=== PATIENT | male | born 1945 | race Caucasian/White ===

== ENCOUNTER 2017-04-05 17:10 | Inpatient (IN) | payer MEDICARE ==
[~2017-04-05] VITALS: Ht 177.8 cm; Wt 89.4 kg
[2017-04-05] VITALS (8 sets, daily range): BP systolic 114–185; BP diastolic 68–91; PULSE 52–92; RESP 16–29; TEMP 98–99.3; O2SAT 96–100
[2017-04-05 18:41] LABS: AUTOMATED NEUTROPHIL # 7.2 TH/MM3 (1.8-7.7); BASOPHIL # 0.1 TH/MM3 (0-0.2); BASOPHIL % 0.6 % (0.0-2.0); EOSINOPHIL % 0.2 % (0.0-4.0); HEMATOCRIT 36.5 % (39.0-51.0); LYMPH % 16.4 % (9.0-44.0); LYMPHOCYTE # 1.5 TH/MM3 (1.0-4.8); MEAN CELL VOLUME 93.7 FL (80.0-100.0); MEAN CORPUSCULAR HEMOGLOBIN 31.1 PG (27.0-34.0); MEAN CORPUSCULAR HGB CONC 33.2 % (32.0-36.0); MONO % 5.3 % (0.0-8.0); NEUT % 77.5 % (16.0-70.0); PLATELET COUNT 279 TH/MM3 (150-450); RED BLOOD COUNT 3.89 MIL/MM3 (4.50-5.90); RED CELL DISTRIBUTION WIDTH 16.8 % (11.6-17.2); WHITE BLOOD COUNT 9.2 TH/MM3 (4.0-11.0)
[2017-04-05 18:42] LABS: HEMO FLAGS AUTO DIFF
[2017-04-05] MEDS ORDERED: SODIUM CHLOR 0.9% 250 ML INJ 250 ML IV ONE (18:45)
--- NOTE | 2017-04-05 18:47 | PD ---
HPI Chief Complaint: GI Complaint Time Seen by Provider: 18:02 Travel History International Travel<30 days: No Contact w/Intl Traveler<30days: No Traveled to known affect area: No History of Present Illness HPI 71 year old male patient arrives to the emergency department via EMS for evaluation of GI bleeding. Patient was diagnosed with ulcerative colitis last spring. Patient states he has been passing small amounts of blood since then. Patient states today around 5 PM he had a bowel movement and noticed more significant bleeding. Patient then was transported to our facility for further evaluation. Upon arrival the patient was found to be bleeding rectally, but in no acute distress and hemodynamically stable. After approximately 30-40 mins it was noted that the bleeding was significantly increased. Patient is not currently on any blood thinners. He is denying abdominal pain, nausea or vomiting. PFSH Past Medical History Cancer: Yes (PROSTATE) Cardiovascular Problems: Yes (MVP) High Cholesterol: Yes Gastrointestinal Disorders: Yes (ULCERATIVE COLITIS) Medical other: Yes (PROSTATE CA) Tetanus Vaccination: Unknown Past Surgical History Other Surgery: Yes (INFRARED COAGULATION) Social History Alcohol Use: No Tobacco Use: No Substance Use: No Allergies-Medications (Allergen,Severity, Reaction): Coded Allergies: Penicillins (Verified Allergy, Unknown, 04/05/17) ciprofloxacin (Verified Allergy, Unknown, 04/05/17) Reported Meds & Prescriptions Reported Meds & Active Scripts Active Reported Align (Lactobacillus Rhamnosus (GG)) 4 Mg (1 Billion Cell) Cap 4 Mg PO DAILY Prednisone 20 Mg Tab 20 Mg PO BID Hydrocortisone (Intrarectal) Enema 100 Mg/60 Ml Enem 100 Mg RECTAL HS [place]asa Supp (Mesalamine) 1,000 Mg Supp 1,000 Mg RECTAL HS Mercaptopurine 50 Mg Tab 50 Mg PO DAILY Folic Acid 1 Mg Tablet Asacol HD (Mesalamine) 800 Mg Tab 800 Mg PO BID Swallow whole. Take on an empty stomach. Timolol Opth Drops 0.5 % Soln 1 Drop EACH EYE BID Prilosec (Omeprazole Magnesium) 20 Mg Tab Vitamin D-3 (Cholecalciferol) 2,000 Unit Tab Citalopram (Citalopram Hydrobromide) 20 Mg Tab 20 Mg PO DAILY Simvastatin 40 Mg Tab 40 Mg PO HS Verapamil ER 24 HR (Verapamil HCl) 240 Mg Tab 240 Mg PO HS Diazepam 10 Mg Tab 10 Mg PO BID PRN Review of Systems Except as stated in HPI: all other systems reviewed are Neg Physical Exam Narrative GENERAL: Well-nourished well-developed 71-year-old male in no acute distress. He is hemodynamically stable at this time. Significant rectal bleeding noted. SKIN: Focused skin assessment warm/dry. HEAD: Atraumatic. Normocephalic. EYES: Pupils equal and round. No scleral icterus. No injection or drainage. ENT: No nasal bleeding or discharge. Mucous membranes pink and moist. NECK: Trachea midline. No JVD. CARDIOVASCULAR: Regular rate and rhythm. No murmur appreciated. RESPIRATORY: No accessory muscle use. Clear to auscultation. Breath sounds equal bilaterally. GASTROINTESTINAL: Abdomen soft, non-tender, nondistended. Hepatic and splenic margins not palpable. Significant bright red rectal bleeding with multiple clots noted. MUSCULOSKELETAL: No obvious deformities. No clubbing. No cyanosis. No edema. NEUROLOGICAL: Awake and alert. No obvious cranial nerve deficits. Motor grossly within normal limits. Normal speech. PSYCHIATRIC: Appropriate mood and affect; insight and judgment normal. Data Data Last Documented VS Vital Signs Date Time Temp Pulse Resp B/P (MAP) Pulse Ox O2 Delivery O2 Flow Rate FiO2 04/05/17 20:08 92 20 148/78 (101) 99 Room Air 04/05/17 17:45 98.4 Orders Orders Complete Blood Count With Diff (04/05/17 18:03) Comprehensive Metabolic Panel (04/05/17 18:03) Lipase (04/05/17 18:03) Prothrombin Time / Inr (Pt) (04/05/17 18:03) Act Partial Throm Time (Ptt) (04/05/17 18:03) Urinalysis - C+S If Indicated (04/05/17 18:03) Ecg Monitoring (04/05/17 18:03) Iv Access Insert/Monitor (04/05/17 18:03) Oximetry (04/05/17 18:03) Ct Abd/Pel W Iv Contrast(Rout) (04/05/17 18:09) Type And Screen (04/05/17 18:43) Red Blood Cells (Rbc) (04/05/17 18:43) Blood Product Administration (04/05/17 18:43) Sodium Chlor 0.9% 250 Ml Inj (Ns 250 Ml (04/05/17 18:45) Sodium Chlor 0.9% 1000 Ml Inj (Ns 1000 M (04/05/17 19:30) Iohexol 350 Inj (Omnipaque 350 Inj) (04/05/17 19:39) Cbc No Diff, Includes Plts (04/05/17 20:15) Cbc No Diff, Includes Plts (04/06/17 02:15) Cbc No Diff, Includes Plts (04/06/17 08:15) Cbc No Diff, Includes Plts (04/06/17 14:15) Cbc No Diff, Includes Plts (04/06/17 20:15) Cbc No Diff, Includes Plts (04/07/17 02:15) Cbc No Diff, Includes Plts (04/07/17 08:15) Cbc No Diff, Includes Plts (04/07/17 14:15) Cbc No Diff, Includes Plts (04/07/17 20:15) Ondansetron Inj (Zofran Inj) (04/05/17 20:15) Methylprednisolone So Succ Inj (Solumedr (04/05/17 22:00) Diet Npo (04/06/17 Breakfast) Mesalamine Enema (Rowasa Enema) (04/05/17 21:00) D5-Ns + Kcl 20 Meq Inj (D5-Ns + Kcl 20 M (04/05/17 20:15) Famotidine Inj (Pepcid Inj) (04/05/17 20:15) Admit Order (Ed Use Only) (04/05/17 20:52) Labs Laboratory Tests Test 04/05/17 18:15 04/05/17 20:00 04/05/17 20:51 White Blood Count 9.2 TH/MM3 12.2 TH/MM3 Red Blood Count 3.89 MIL/MM3 3.24 MIL/MM3 Hemoglobin 12.1 GM/DL 9.8 GM/DL Hematocrit 36.5 % 30.6 % Mean Corpuscular Volume 93.7 FL 94.3 FL Mean Corpuscular Hemoglobin 31.1 PG 30.3 PG Mean Corpuscular Hemoglobin Concent 33.2 % 32.1 % Red Cell Distribution Width 16.8 % 16.4 % Platelet Count 279 TH/MM3 264 TH/MM3 Mean Platelet Volume 8.1 FL 7.3 FL Neutrophils (%) (Auto) 77.5 % Lymphocytes (%) (Auto) 16.4 % Monocytes (%) (Auto) 5.3 % Eosinophils (%) (Auto) 0.2 % Basophils (%) (Auto) 0.6 % Neutrophils # (Auto) 7.2 TH/MM3 Lymphocytes # (Auto) 1.5 TH/MM3 Monocytes # (Auto) 0.5 TH/MM3 Eosinophils # (Auto) 0.0 TH/MM3 Basophils # (Auto) 0.1 TH/MM3 CBC Comment AUTO DIFF Differential Total Cells Counted 100 Neutrophils % (Manual) 70 % Band Neutrophils % 4 % Lymphocytes % 15 % Monocytes % 7 % Neutrophils # (Manual) 7.2 TH/MM3 Metamyelocytes 2 % Myelocytes 1 % Promyelocytes 1 % Differential Comment FINAL DIFF MANUAL Toxic Granulation 1+ Platelet Estimate NORMAL Platelet Morphology Comment NORMAL Ovalocytes 1+ Prothrombin Time 10.2 SEC Prothromb Time International Ratio 1.0 RATIO Activated Partial Thromboplast Time 18.8 SEC Blood Urea Nitrogen 17 MG/DL Creatinine 0.83 MG/DL Random Glucose 100 MG/DL Total Protein 5.9 GM/DL Albumin 2.5 GM/DL Calcium Level 8.2 MG/DL Alkaline Phosphatase 73 U/L Aspartate Amino Transf (AST/SGOT) 26 U/L Alanine Aminotransferase (ALT/SGPT) 43 U/L Total Bilirubin 0.4 MG/DL Sodium Level 142 MEQ/L Potassium Level 4.2 MEQ/L Chloride Level 106 MEQ/L Carbon Dioxide Level 26.8 MEQ/L Anion Gap 9 MEQ/L Estimat Glomerular Filtration Rate 91 ML/MIN Lipase 69 U/L Urine Color LIGHT-YELLOW Urine Turbidity CLEAR Urine pH 7.0 Urine Specific [place] 1.008 Urine Protein NEG mg/dL Urine Glucose (UA) NEG mg/dL Urine Ketones NEG mg/dL Urine Occult Blood MOD Urine Nitrite NEG Urine Bilirubin NEG Urine Urobilinogen LESS THAN 2.0 MG/DL Urine Leukocyte Esterase NEG Urine RBC 1 /hpf Urine WBC 1 /hpf Microscopic Urinalysis Comment CULT NOT INDICATED MDM Medical Decision Making Medical Screen Exam Complete: Yes Emergency Medical Condition: Yes Differential Diagnosis Differential diagnoses include but not limited to bowel perforation, hemorrhage , GI bleed, ulcerative colitis exacerbation, bleeding hemorrhoids Narrative Course Patient placed on monitor, IV obtained, CBC, CMP, PT, INR, lipase, UA ordered and pending upon initial exam. Patient is hemodynamically stable and in no acute distress. Vital signs stable. Within 30-40 minutes when patient started bleeding significantly more Dr. Moreno assessed the patient and ordered type and screen and 2 PRBCs to be given now. Abdominal CT shows: Diverticular disease without evidence of diverticulitis. Mild mural forgetting in the rectal sigmoid of unknown etiology. Left renal cyst and small hiatal hernia. The patient was continuing to bleed bright red blood profusely from the rectum. The patient was still denying abdominal pain, nausea or vomiting. The patient was given a liter bolus of normal saline. The patient's blood pressure started to trend downward and his heart rate increased. First unit of packed red blood cells was started in the ED. Patient was admitted to intensive care. Dr. Bautista accepted admission. Dr. Ott colorectal surgeon consulted. Patient is admitted at this time. Diagnosis Primary Impression: Anorectal hemorrhage Admitting Information Admitting Physician Requests: Admit Jenni Aguila Apr 05, 2017 18:47
[2017-04-05 18:48] LABS: PROTHROMBIN TIME - PATIENT 10.2 SEC (9.8-11.6)
[2017-04-05 18:50] LABS: APTT (PATIENT) 18.8 SEC (24.3-30.1)
[2017-04-05 19:04] LABS: ALKALINE PHOSPHATASE 73 U/L (45-117); ALT (GPT) 43 U/L (12-78); TOTAL BILIRUBIN ADULT 0.4 MG/DL (0.2-1.0)
[2017-04-05 19:07] LABS: ANION GAP 9 MEQ/L (5-15); AST (GOT) 26 U/L (15-37); BICARBONATE 26.8 MEQ/L (21.0-32.0); BLOOD UREA NITROGEN 17 MG/DL (7-18); CHLORIDE 106 MEQ/L (98-107); GLOMERULAR FILTRATION RATE 91 ML/MIN (>89); SODIUM (NA) 142 MEQ/L (136-145)
[2017-04-05 19:08] LABS: POTASSIUM 4.2 MEQ/L (3.5-5.1)
[2017-04-05] MEDS ORDERED: VERA1TAB17 PO (19:08)
[2017-04-05] MEDS ORDERED: MERC50TA PO (19:08)
[2017-04-05] MEDS ORDERED: CHOL1TAB42 (19:08)
[2017-04-05] MEDS ORDERED: HYDR100E2 RECTAL (19:08)
[2017-04-05] MEDS ORDERED: ASAC800T PO (19:08)
[2017-04-05] MEDS ORDERED: PRIL20TA2 (19:08)
[2017-04-05] MEDS ORDERED: CANA10002 RECTAL (19:08)
[2017-04-05] MEDS ORDERED: CITA20TA4 PO (19:08)
[2017-04-05] MEDS ORDERED: PRED20 PO (19:08)
[2017-04-05] MEDS ORDERED: ALIG4CAP PO (19:08)
[2017-04-05] MEDS ORDERED: FOLI1TAB6 (19:08)
[2017-04-05] MEDS ORDERED: DIAZ10TA PO (19:08)
[2017-04-05] MEDS ORDERED: SIMV40TA PO (19:08)
[2017-04-05] MEDS ORDERED: TIMO0.5S30 EACH EYE (19:08)
--- NOTE | 2017-04-05 19:13 | PD ---
Data Data Last Documented VS Vital Signs Date Time Temp Pulse Resp B/P (MAP) Pulse Ox O2 Delivery O2 Flow Rate FiO2 04/05/17 20:08 92 20 148/78 (101) 99 Room Air 04/05/17 17:45 98.4 Orders Orders Complete Blood Count With Diff (04/05/17 18:03) Comprehensive Metabolic Panel (04/05/17 18:03) Lipase (04/05/17 18:03) Prothrombin Time / Inr (Pt) (04/05/17 18:03) Act Partial Throm Time (Ptt) (04/05/17 18:03) Urinalysis - C+S If Indicated (04/05/17 18:03) Ecg Monitoring (04/05/17 18:03) Iv Access Insert/Monitor (04/05/17 18:03) Oximetry (04/05/17 18:03) Ct Abd/Pel W Iv Contrast(Rout) (04/05/17 18:09) Type And Screen (04/05/17 18:43) Red Blood Cells (Rbc) (04/05/17 18:43) Blood Product Administration (04/05/17 18:43) Sodium Chlor 0.9% 250 Ml Inj (Ns 250 Ml (04/05/17 18:45) Sodium Chlor 0.9% 1000 Ml Inj (Ns 1000 M (04/05/17 19:30) Iohexol 350 Inj (Omnipaque 350 Inj) (04/05/17 19:39) Cbc No Diff, Includes Plts (04/05/17 20:15) Cbc No Diff, Includes Plts (04/06/17 02:15) Cbc No Diff, Includes Plts (04/06/17 08:15) Cbc No Diff, Includes Plts (04/06/17 14:15) Cbc No Diff, Includes Plts (04/06/17 20:15) Cbc No Diff, Includes Plts (04/07/17 02:15) Cbc No Diff, Includes Plts (04/07/17 08:15) Cbc No Diff, Includes Plts (04/07/17 14:15) Cbc No Diff, Includes Plts (04/07/17 20:15) Ondansetron Inj (Zofran Inj) (04/05/17 20:15) Methylprednisolone So Succ Inj (Solumedr (04/05/17 22:00) Diet Npo (04/06/17 Breakfast) Mesalamine Enema (Rowasa Enema) (04/05/17 21:00) D5-Ns + Kcl 20 Meq Inj (D5-Ns + Kcl 20 M (04/05/17 20:15) Famotidine Inj (Pepcid Inj) (04/05/17 20:15) Admit Order (Ed Use Only) (04/05/17 20:52) Labs Laboratory Tests Test 04/05/17 18:15 04/05/17 20:00 04/05/17 20:51 White Blood Count 9.2 TH/MM3 12.2 TH/MM3 Red Blood Count 3.89 MIL/MM3 3.24 MIL/MM3 Hemoglobin 12.1 GM/DL 9.8 GM/DL Hematocrit 36.5 % 30.6 % Mean Corpuscular Volume 93.7 FL 94.3 FL Mean Corpuscular Hemoglobin 31.1 PG 30.3 PG Mean Corpuscular Hemoglobin Concent 33.2 % 32.1 % Red Cell Distribution Width 16.8 % 16.4 % Platelet Count 279 TH/MM3 264 TH/MM3 Mean Platelet Volume 8.1 FL 7.3 FL Neutrophils (%) (Auto) 77.5 % Lymphocytes (%) (Auto) 16.4 % Monocytes (%) (Auto) 5.3 % Eosinophils (%) (Auto) 0.2 % Basophils (%) (Auto) 0.6 % Neutrophils # (Auto) 7.2 TH/MM3 Lymphocytes # (Auto) 1.5 TH/MM3 Monocytes # (Auto) 0.5 TH/MM3 Eosinophils # (Auto) 0.0 TH/MM3 Basophils # (Auto) 0.1 TH/MM3 CBC Comment AUTO DIFF Differential Total Cells Counted 100 Neutrophils % (Manual) 70 % Band Neutrophils % 4 % Lymphocytes % 15 % Monocytes % 7 % Neutrophils # (Manual) 7.2 TH/MM3 Metamyelocytes 2 % Myelocytes 1 % Promyelocytes 1 % Differential Comment FINAL DIFF MANUAL Toxic Granulation 1+ Platelet Estimate NORMAL Platelet Morphology Comment NORMAL Ovalocytes 1+ Prothrombin Time 10.2 SEC Prothromb Time International Ratio 1.0 RATIO Activated Partial Thromboplast Time 18.8 SEC Blood Urea Nitrogen 17 MG/DL Creatinine 0.83 MG/DL Random Glucose 100 MG/DL Total Protein 5.9 GM/DL Albumin 2.5 GM/DL Calcium Level 8.2 MG/DL Alkaline Phosphatase 73 U/L Aspartate Amino Transf (AST/SGOT) 26 U/L Alanine Aminotransferase (ALT/SGPT) 43 U/L Total Bilirubin 0.4 MG/DL Sodium Level 142 MEQ/L Potassium Level 4.2 MEQ/L Chloride Level 106 MEQ/L Carbon Dioxide Level 26.8 MEQ/L Anion Gap 9 MEQ/L Estimat Glomerular Filtration Rate 91 ML/MIN Lipase 69 U/L Urine Color LIGHT-YELLOW Urine Turbidity CLEAR Urine pH 7.0 Urine Specific [place] 1.008 Urine Protein NEG mg/dL Urine Glucose (UA) NEG mg/dL Urine Ketones NEG mg/dL Urine Occult Blood MOD Urine Nitrite NEG Urine Bilirubin NEG Urine Urobilinogen LESS THAN 2.0 MG/DL Urine Leukocyte Esterase NEG Urine RBC 1 /hpf Urine WBC 1 /hpf Microscopic Urinalysis Comment CULT NOT INDICATED MDM Supervised Visit with HERMAN: Yes Narrative Course I, Dr. Moreno, have reviewed the advance practice practitioner's documentation and am in agreement, met with the patient face to face, made the diagnosis, and the medical decision making was done by me. *My assessment and Findings: Patient is a 71-year-old male with history of ulcer colitis has been followed by Dr. Arredondo in the past for this emergency department with bright red blood from rectum for the past 2 hours. Initially on evaluation by Jenni Ortiz the patient appeared comfortable and had no active passing of blood. I was approached by the patient's stating that he was bleeding heavily, I went to examine the patient and his pants were soaked in blood, the patient was placed in the prone position and examined thoroughly I do not see any external or internal hemorrhoids, the patient is passing bright red blood from the rectum actively but it is nonpulsatile. He also passed 3 baseball-sized blood clots. He appears hemodynamically stable his GCS of 15, hemoglobin of 12, I ordered 2 units PRBCs to be transfused now in for an reserve. The patient was discussed with Dr. Baxter by Jenni Ortiz, he recommends large bore access admission to the hospital and cannot be having colonoscopy given the amount of blood in his rectum at this time. The patient was discussed with Dr. Lynn Matias by me @ 1900, she is in route to see the patient. She agrees the patient should receive blood and have 4 units an reserve. CAT scan is ordered, the patient will be admitted to the ICU. Diagnosis Primary Impression: Anorectal hemorrhage Admitting Information Admitting Physician Requests: Admit Condition: Critical Brian Moreno MD Apr 05, 2017 19:13
[2017-04-05] MEDS ORDERED: SODIUM CHLOR 0.9% 1000 ML INJ 1,000 ML IV ONE (19:30)
[2017-04-05 19:38] LABS: BANDS 4 % (0-6); METAMYELOCYTES 2 % (0-1); MYELOCYTES 1 % (0-0); NEUTROPHIL # MANUAL DIFF 7.2 TH/MM3 (1.8-7.7); OVALOCYTES 1+ (NORMAL); PLATELET ESTIMATE SMEAR NORMAL (NORMAL); PLATELET MORPHOLOGY NORMAL (NORMAL); POLYS (SEG NEUTROPHILS) 70 % (16-70); PROMYELOCYTES 1 % (0-0); SCAN/DIFF FINAL DIFF MANUAL; TOXIC GRANULATION 1+ (NORMAL); WBC DIFF SAMPLE 100
[2017-04-05] MEDS ORDERED: IOHEXOL 350 MG/ML 10 ML VIAL (for RAD DIAG) IVCONTRAST ONE (19:39)
--- NOTE | 2017-04-05 19:48 | RADRPT ---
EXAM DATE/TIME: 04/05/2017 19:20 [facility] COMPARISON: No previous studies available for comparison. INDICATIONS : Severe rectal bleeding. IV CONTRAST: 100 Omnipaque 350 (iohexol) IV ORAL CONTRAST: No oral contrast ingested. RADIATION DOSE: 10.64 CTDIvol (mGy) MEDICAL HISTORY : Ulcerative colitis. Cardiovascular disease Carcinoma, prostate. SURGICAL HISTORY : None. ENCOUNTER: Initial ACUITY: 1 day PAIN SCALE: 8/10 LOCATION: rectal TECHNIQUE: Volumetric scanning of the abdomen and pelvis was performed. Using automated exposure control and ad justment of the mA and/or kV according to patient size, radiation dose was kept as low as reasonably achievable to obtain optimal diagnostic quality images. DICOM format image data is available electro nically for review and comparison. FINDINGS: Lung bases are clear except for linear scarring. No acute findings in the liver, spleen, adrenals or pancreas. No calcified gallstones. There is a 7.1 cm left renal cyst. No free fluid. No bowel obstruction. No adenopathy. No acute findings within the pelvis. Small hiatal hernia. There is colonic diverticular disease without evidence for diverticulitis. CONCLUSION: 1. Colonic diverticular disease without evidence for diverticulitis. Mild mural thickening in the rec tosigmoid of unknown etiology. 2. 7 cm left renal cyst. 3. Small hiatal hernia. Anthony Ribeiro MD on April 05, 2017 at 19:41 Board Certified Radiologist. This report was verified electronically.
[2017-04-05] MEDS ORDERED: ONDANSETRON HCL 4 MG/2 ML VIAL IV PUSH PRN ×2 (20:15→21:00)
[2017-04-05] MEDS ORDERED: FAMOTIDINE 20 MG/2 ML VIAL IV PUSH SCH (20:15)
[2017-04-05] MEDS: D5-NS + KCL 20 MEQ INJ 1,000 ML IV SCH ×2 (20:15→22:58)
[2017-04-05 20:28] LABS: BLOOD, URINE MOD (NEG); COMMENT (UR) CULT NOT INDICATED; CULTURE IF INDICATED CULT NOT INDICATED; GLUCOSE,URINE NEG (NEG); KETONE, URINE NEG (NEG); NITRITE,URINE NEG (NEG); URINE COLOR LIGHT-YELLOW (YELLW/STRAW)
[2017-04-05] MEDS ORDERED: ACETAMINOPHEN 325 MG TAB PO PRN (21:00)
[2017-04-05] MEDS ORDERED: MISCELLANEOUS NURSING INFORMATION XX SCH (21:00)
[2017-04-05] MEDS ORDERED: SODIUM CHLORIDE 0.9% FLUSH 10 ML FLUSH IV FLUSH PRN (21:00)
[2017-04-05] MEDS ORDERED: CHLORHEXIDINE GLUCONATE 2 % 1 PACK (2 CLOTHS) TOP PRN (21:00)
[2017-04-05 21:03] LABS: HEMATOCRIT 30.6 % (39.0-51.0); MEAN CELL VOLUME 94.3 FL (80.0-100.0); MEAN CORPUSCULAR HEMOGLOBIN 30.3 PG (27.0-34.0); MEAN CORPUSCULAR HGB CONC 32.1 % (32.0-36.0); PLATELET COUNT 264 TH/MM3 (150-450); RED BLOOD COUNT 3.24 MIL/MM3 (4.50-5.90); RED CELL DISTRIBUTION WIDTH 16.4 % (11.6-17.2); REVIEW FLAG FINAL; WHITE BLOOD COUNT 12.2 TH/MM3 (4.0-11.0)
--- NOTE | 2017-04-05 21:36 | MB ---
cc: DES PICKETT MD DATE OF CONSULTATION 04/05/17 CHIEF COMPLAINT Rectal bleeding. HISTORY OF PRESENT ILLNESS The patient is a 71-year-old male who came into the emergency room with copious rectal bleeding. He was diagnosed with ulcerative colitis in June of this year and, according to the patient, he was told that this was mostly distal disease. He has been treated with steroids, 5-ASA products, and 6MP, and is scheduled to start Remicaide infusion on Saturday. He has had mostly small to moderate amounts of blood with his colitis, as well as mucus but not a lot of diarrhea. Then beginning about 5 o'clock tonight, he began having more significant bleeding ,with passage of clots and both bright and dark blood. His normal bowel pattern is daily, perhaps slightly more stool once or twice a week. He has been following a soft diet since his diagnosis of ulcerative colitis. PAST MEDICAL HISTORY 1. Mitral valve prolapse 2. History of prostate cancer PAST SURGICAL HISTORY None ALLERGIES PENICILLIN CIPROFLOXACIN SOCIAL HISTORY The patient denies tobacco, alcohol or recreational drugs. MEDICATIONS 1. Mercaptopurine 2. Simvastatin 3. Verapamil 4. Citalopram 5. Diazepam 6. Atenolol. 7. Omeprazole 8. Mesalamine. 9. Lactobacillus 10. Hydrocortisone enemas. 11. Prednisone 12. Folic acid 13. Vitamin D PHYSICAL EXAMINATION GENERAL: An alert male who appears comfortable. VITAL SIGNS: A pulse of 92 up from 55 earlier, respiratory rate is 20, blood pressure is 148/78 and pulse oximetry is 99% on room air. NEUROLOGIC: Grossly intact. SKIN: Warm and dry. HEENT: Head is normocephalic, atraumatic. CARDIOVASCULAR: Regular rate. LUNGS: Breathing symmetric bilaterally and nonlabored. ABDOMEN: Soft, nondistended, nontender. There are no palpable masses. EXTREMITIES: No edema. RECTAL: External anal exam reveals a large amount of old blood around the anal opening as well as some old clots and some stool. Digital rectal examination reveals poor tone. He does have some hemorrhoidal tissue. The distal rectum is palpably inflamed. The rectum was irrigated with warm normal saline with really only a small amount of blood expressed. LABORATORY DATA A white count 9.2, hemoglobin of 12.1, hematocrit 36.5, platelets of 279. Chemistry is essentially normal. Coags - PT of 10.2, INR is 1.0 and APTT of 18.8. Urinalysis is negative. IMAGING STUDIES CT scan showed diverticulosis without diverticulitis but does show some very mild thickening of the rectosigmoid wall as well as an incidental 7-cm left renal cyst and a small hiatal hernia. IMPRESSION Rectal bleeding most likely from ulcerative proctocolitis. I have irrigated out the clots to see if we can decrease his risk of continued bleeding and I will start him on Rowasa enemas, as well as some IV steroids. I will go ahead and flex him tomorrow morning. Hopefully, we can get him through this acute phase, as if I do have to operate emergently it will mean a proctectomy with end colostomy, which would be permanent. Thank you very much for your kind referral. I will defer management of the colitis to the Dr. Arredondo who is his regular provider. MD TYRONE Redman/ /8:39 PM /9:22 PM MTDD
[2017-04-05] MEDS: SODIUM CHLOR 0.9% 1000 ML INJ 1,000 ML IV SCH (22:00)
--- NOTE | 2017-04-05 22:33 | HHI.HP ---
[facility] Service Critical Care Medicine Primary Care Physician Unknown Admission Diagnosis GI bleed Diagnosis: (1) Hypovolemic shock Diagnosis: Principal (2) Lower GI bleed Diagnosis: Principal (3) Ulcerative colitis Diagnosis: Secondary Chief Complaint: Rectal bleeding. Travel History International Travel<30 Days: No Contact w/Intl Traveler <30 Da: No Traveled to Known Affected Are: No History of Present Illness 71 y/o man with Hx of ulcerative colitis started passing large clots of blood per rectum about 1700 today. Came to ED, at one point following period of normotension he developed SBP 70 mm Hg. Rapid transfusion was begun and we brought him up to the [facility]. Dr. Matias examined the patient in ED and has made recommendations. Past Family Social History Allergies: Coded Allergies: Penicillins (Verified Allergy, Unknown, 04/05/17) ciprofloxacin (Verified Allergy, Unknown, 04/05/17) Physical Exam Vital Signs Vital Signs Date Time Temp Pulse Resp B/P (MAP) Pulse Ox O2 Delivery O2 Flow Rate FiO2 04/05/17 21:29 98.5 75 16 133/78 (96) 96 04/05/17 21:08 98.5 70 16 114/68 96 04/05/17 20:08 92 20 148/78 (101) 99 Room Air 04/05/17 19:02 55 17 185/90 (121) 100 Room Air 04/05/17 17:45 98.4 55 18 185/90 (121) 100 Room Air 04/05/17 17:45 18 04/05/17 17:36 98.0 52 18 185/90 (121) 98 Physical Exam Gen: Feels cold. Head: Normal. Lungs: Clear, no adventitious sounds. Heart: RRR, NL S1S2, No JVD. Abdomen: Soft, no guarding. BS active. Extremities: Tepid, adequately perfused. Neuro: Alert, O X 3. M/S grossly intact. Laboratory Laboratory Tests Test 04/05/17 18:15 04/05/17 20:00 04/05/17 20:51 White Blood Count 9.2 12.2 Red Blood Count 3.89 3.24 Hemoglobin 12.1 9.8 Hematocrit 36.5 30.6 Mean Corpuscular Volume 93.7 94.3 Mean Corpuscular Hemoglobin 31.1 30.3 Mean Corpuscular Hemoglobin Concent 33.2 32.1 Red Cell Distribution Width 16.8 16.4 Platelet Count 279 264 Mean Platelet Volume 8.1 7.3 Neutrophils (%) (Auto) 77.5 Lymphocytes (%) (Auto) 16.4 Monocytes (%) (Auto) 5.3 Eosinophils (%) (Auto) 0.2 Basophils (%) (Auto) 0.6 Neutrophils # (Auto) 7.2 Lymphocytes # (Auto) 1.5 Monocytes # (Auto) 0.5 Eosinophils # (Auto) 0.0 Basophils # (Auto) 0.1 CBC Comment AUTO DIFF Differential Total Cells Counted 100 Neutrophils % (Manual) 70 Band Neutrophils % 4 Lymphocytes % 15 Monocytes % 7 Neutrophils # (Manual) 7.2 Metamyelocytes 2 Myelocytes 1 Promyelocytes 1 Differential Comment FINAL DIFF MANUAL Toxic Granulation 1+ Platelet Estimate NORMAL Platelet Morphology Comment NORMAL Ovalocytes 1+ Prothrombin Time 10.2 Prothromb Time International Ratio 1.0 Activated Partial Thromboplast Time 18.8 Blood Urea Nitrogen 17 Creatinine 0.83 Random Glucose 100 Total Protein 5.9 Albumin 2.5 Calcium Level 8.2 Alkaline Phosphatase 73 Aspartate Amino Transf (AST/SGOT) 26 Alanine Aminotransferase (ALT/SGPT) 43 Total Bilirubin 0.4 Sodium Level 142 Potassium Level 4.2 Chloride Level 106 Carbon Dioxide Level 26.8 Anion Gap 9 Estimat Glomerular Filtration Rate 91 Lipase 69 Urine Color LIGHT-YELLOW Urine Turbidity CLEAR Urine pH 7.0 Urine Specific [place] 1.008 Urine Protein NEG Urine Glucose (UA) NEG Urine Ketones NEG Urine Occult Blood MOD Urine Nitrite NEG Urine Bilirubin NEG Urine Urobilinogen LESS THAN 2.0 Urine Leukocyte Esterase NEG Urine RBC 1 Urine WBC 1 Microscopic Urinalysis Comment CULT NOT INDICATED Result Diagram: 04/05/17205004/05/171814 Caprini VTE Risk Assessment Caprini VTE Risk Assessment: No/Low Risk (score <= 1) Caprini Risk Assessment Model Point Value = 1 Point Value = 2 Point Value = 3 Point Value = 5 Age 41-60 Minor surgery BMI > 25 kg/m2 Swollen legs Varicose veins or History of unexplained or recurrent spontaneous Oral contraceptives or hormone replacement Sepsis (< 1 month) Serious lung disease, including pneumonia (< 1 month) Abnormal pulmonary function Acute myocardial infarction Congestive heart failure (< 1 month) History of inflammatory bowel disease Medical patient at bed rest Age 61-74 Arthroscopic surgery Major open surgery (> 45 min) Laparoscopic surgery (> 45 min) Malignancy Confined to bed (> 72 hours) Immobilizing plaster cast Central venous access Age >= 75 History of VTE Family history of VTE Factor V Leiden Prothrombin [id number] Lupus anticoagulant Anticardiolipin antibodies Elevated serum homocysteine Heparin-induced thrombocytopenia Other congenital or acquired thrombophilia Stroke (< 1 month) Elective arthroplasty Hip, pelvis, or leg fracture Acute spinal cord injury (< 1 month) Prophylaxis Regimen Total Risk Factor Score Risk Level Prophylaxis Regimen 0-1 Low Early ambulation 2 Moderate Order ONE of the following: *Sequential Compression Device (SCD) *Heparin 5000 units SQ BID 3-4 Higher Order ONE of the following medications: *Heparin 5000 units SQ TID *Enoxaparin/Lovenox 40 mg SQ daily (WT < 150 kg, CrCl > 30 mL/min) *Enoxaparin/Lovenox 30 mg SQ daily (WT < 150 kg, CrCl > 10-29 mL/min) *Enoxaparin/Lovenox 30 mg SQ BID (WT < 150 kg, CrCl > 30 mL/min) AND/OR *Sequential Compression Device (SCD) 5 or more Highest Order ONE of the following medications: *Heparin 5000 units SQ TID (Preferred with Epidurals) *Enoxaparin/Lovenox 40 mg SQ daily (WT < 150 kg, CrCl > 30 mL/min) *Enoxaparin/Lovenox 30 mg SQ daily (WT < 150 kg, CrCl > 10-29 mL/min) *Enoxaparin/Lovenox 30 mg SQ BID (WT < 150 kg, CrCl > 30 mL/min) AND *Sequential Compression Device (SCD) Assessment and Plan Assessment and Plan Assessment: 1. Lower GI bleed. 2. Hypotension. 3. Ulcerative colitis. Plan: 1. Serial Hgb. 2. NPO except meds, prep. 3. Maintenance IV. 4. IV steroid coverage (On prednisone) 5. CRS Service is following, plan flex sig in a.m. Overall impression: Acute LGI hemorrhage with period of hypotension. Critically ill and receiving rapid transfusion. Critical care 40 mins Justen Bautista MD Apr 05, 2017 22:33
[2017-04-05] MEDS: methylPREDNISolone SOD SUCC 40 MG/1 ML VIAL IV PUSH SCH (22:59)
[2017-04-05] MEDS: FAMOTIDINE 20 MG/2 ML VIAL IV PUSH SCH (22:59)
[2017-04-05] MEDS: SODIUM CHLORIDE 0.9% FLUSH 10 ML FLUSH IV FLUSH SCH (22:59)
[2017-04-05] MEDS: MESALAMINE ENEMA 4 GM/60 ML BTL RECTAL SCH (23:00)
[2017-04-06] VITALS (11 sets, daily range): BP systolic 107–140; BP diastolic 66–85; PULSE 59–90; RESP 15–18; TEMP 97.6–99.1; O2SAT 96–98
[2017-04-06 03:43] LABS: HEMATOCRIT 35.1 % (39.0-51.0); MEAN CELL VOLUME 90.4 FL (80.0-100.0); MEAN CORPUSCULAR HEMOGLOBIN 30.5 PG (27.0-34.0); MEAN CORPUSCULAR HGB CONC 33.7 % (32.0-36.0); PLATELET COUNT 208 TH/MM3 (150-450); RED BLOOD COUNT 3.89 MIL/MM3 (4.50-5.90); RED CELL DISTRIBUTION WIDTH 16.7 % (11.6-17.2); REVIEW FLAG FINAL
[2017-04-06] MEDS: CHLORHEXIDINE GLUCONATE 2 % 1 PACK (2 CLOTHS) TOP SCH (04:00)
[2017-04-06 04:02] LABS: BICARBONATE 26.5 MEQ/L (21.0-32.0); MAGNESIUM 1.6 MG/DL (1.5-2.5); POTASSIUM 4.1 MEQ/L (3.5-5.1)
[2017-04-06] MEDS: methylPREDNISolone SOD SUCC 40 MG/1 ML VIAL IV PUSH SCH ×3 (05:35→22:19)
[2017-04-06] MEDS: D5-NS + KCL 20 MEQ INJ 1,000 ML IV SCH ×2 (06:15→14:26)
[2017-04-06] MEDS: SODIUM CHLOR 0.9% 1000 ML INJ 1,000 ML IV SCH (06:54)
[2017-04-06] MEDS: FAMOTIDINE 20 MG/2 ML VIAL IV PUSH SCH ×2 (09:00→22:19)
[2017-04-06] MEDS: SODIUM CHLORIDE 0.9% FLUSH 10 ML FLUSH IV FLUSH SCH ×2 (09:00→22:23)
--- NOTE | 2017-04-06 09:04 | PD.CONS ---
HPI History of Present Illness This is a 71 year old M who is well known to our service. He presented to the emergency department yesterday with complaints of passing blood clots in his stool. Associated abdominal cramping with BMs. Reports multiple episodes yesterday, however has not had any over night. Pt had known hemorrhoids that he was receiving IRC treatment for, however, he states the bleeding became more profuse in June so he had a colonoscopy to evaluate. At that time pt was diagnosed with ulcerative colitis, confirmed by biopsy, he has tried multiple medications and has been refractory to treatment. Current treatment regimen includes Prednisone, Asacol, and Canasa suppository. Pt was supposed to receive his first injection of Remicade yesterday, however, he ended up in the hospital. CT abdomen/pelvis W IV contrast done in the ER --> Colonic diverticular disease without evidence for diverticulitis. Mild mural thickening in the rectosigmoid of unknown etiology. Pt is S/P 2 Units PRBCs, current H/H is 11.8/35.1. Pt was significantly hypotensive last night and was transferred to ICU for closer monitoring, he is now normotensive. Denies ETOH use and smoking. Denies family history of colon cancer, UC, and Crohns disease, Pt has never had EGD done before. PFSH Past Medical History Ulcerative colitis Mitral valve prolapse History of prostate cancer Hyperlipidemia HTN Coded Allergies: Penicillins (Verified Allergy, Unknown, 04/05/17) ciprofloxacin (Verified Allergy, Unknown, 04/05/17) Family History Unknown Social History Denies ETOH Denies smoking Denies illicit drug use Review of Systems Constitutional: COMPLAINS OF: Fatigue Gastrointestinal: COMPLAINS OF: Abdominal pain, Bloody stools, Diarrhea, DENIES : Black stools, Constipation, Nausea, Vomiting, Difficulty Swallowing, Heartburn , Hematemesis GI Exam Vitals I&O Vital Signs Date Time Temp Pulse Resp B/P (MAP) Pulse Ox O2 Delivery O2 Flow Rate FiO2 04/06/17 07:58 98 21 04/06/17 06:00 68 04/06/17 04:00 64 04/06/17 04:00 99.0 64 16 129/78 (95) 97 04/06/17 02:00 66 04/06/17 00:00 76 04/06/17 00:00 99.1 76 15 107/66 (80) 96 04/05/17 23:00 68 04/05/17 22:00 99.3 81 29 135/83 (100) 100 04/05/17 22:00 99.3 81 29 128/91 100 04/05/17 21:29 98.5 75 16 133/78 (96) 96 04/05/17 21:08 98.5 70 16 114/68 96 04/05/17 20:08 92 20 148/78 (101) 99 Room Air 04/05/17 19:02 55 17 185/90 (121) 100 Room Air 04/05/17 17:45 98.4 55 18 185/90 (121) 100 Room Air 04/05/17 17:45 18 04/05/17 17:36 98.0 52 18 185/90 (121) 98 I/O 04/05/17 04/05/17 04/05/17 04/06/17 04/06/17 04/06/17 07:00 15:00 23:00 07:00 15:00 23:00 Intake Total 1680 ml 650 ml Output Total 725 ml Balance 1680 ml -75 ml Intake IV Total 1000 ml Packed Cells 400 ml 400 ml Blood Product IV Normal Saline Flush 280 ml 250 ml Output Urine Total 725 ml # Voids 2 # Bowel Movements 1 Imaging Last Impressions Abdomen/Pelvis CT 04/05/171808 Signed Impressions: Service Date/Time: Wednesday, April 05, 2017 19:20 - CONCLUSION: 1. Colonic diverticular disease without evidence for diverticulitis. Mild mural thickening in the rectosigmoid of unknown etiology. 2. 7 cm left renal cyst. 3. Small hiatal hernia. Anthony Ribeiro MD Laboratory Test 04/05/17 18:15 04/05/17 20:00 04/05/17 20:51 04/05/17 22:30 White Blood Count 9.2 TH/MM3 12.2 TH/MM3 Red Blood Count 3.89 MIL/MM3 3.24 MIL/MM3 Hemoglobin 12.1 GM/DL 9.8 GM/DL Hematocrit 36.5 % 30.6 % Mean Corpuscular Volume 93.7 FL 94.3 FL Mean Corpuscular Hemoglobin 31.1 PG 30.3 PG Mean Corpuscular Hemoglobin Concent 33.2 % 32.1 % Red Cell Distribution Width 16.8 % 16.4 % Platelet Count 279 TH/MM3 264 TH/MM3 Mean Platelet Volume 8.1 FL 7.3 FL Neutrophils (%) (Auto) 77.5 % Lymphocytes (%) (Auto) 16.4 % Monocytes (%) (Auto) 5.3 % Eosinophils (%) (Auto) 0.2 % Basophils (%) (Auto) 0.6 % Neutrophils # (Auto) 7.2 TH/MM3 Lymphocytes # (Auto) 1.5 TH/MM3 Monocytes # (Auto) 0.5 TH/MM3 Eosinophils # (Auto) 0.0 TH/MM3 Basophils # (Auto) 0.1 TH/MM3 CBC Comment AUTO DIFF Differential Total Cells Counted 100 Neutrophils % (Manual) 70 % Band Neutrophils % 4 % Lymphocytes % 15 % Monocytes % 7 % Neutrophils # (Manual) 7.2 TH/MM3 Metamyelocytes 2 % Myelocytes 1 % Promyelocytes 1 % Differential Comment FINAL DIFF MANUAL Toxic Granulation 1+ Platelet Estimate NORMAL Platelet Morphology Comment NORMAL Ovalocytes 1+ Prothrombin Time 10.2 SEC Prothromb Time International Ratio 1.0 RATIO Activated Partial Thromboplast Time 18.8 SEC Blood Urea Nitrogen 17 MG/DL Creatinine 0.83 MG/DL Random Glucose 100 MG/DL Total Protein 5.9 GM/DL Albumin 2.5 GM/DL Calcium Level 8.2 MG/DL Alkaline Phosphatase 73 U/L Aspartate Amino Transf (AST/SGOT) 26 U/L Alanine Aminotransferase (ALT/SGPT) 43 U/L Total Bilirubin 0.4 MG/DL Sodium Level 142 MEQ/L Potassium Level 4.2 MEQ/L Chloride Level 106 MEQ/L Carbon Dioxide Level 26.8 MEQ/L Anion Gap 9 MEQ/L Estimat Glomerular Filtration Rate 91 ML/MIN Lipase 69 U/L Urine Color LIGHT-YELLOW Urine Turbidity CLEAR Urine pH 7.0 Urine Specific [place] 1.008 Urine Protein NEG mg/dL Urine Glucose (UA) NEG mg/dL Urine Ketones NEG mg/dL Urine Occult Blood MOD Urine Nitrite NEG Urine Bilirubin NEG Urine Urobilinogen LESS THAN 2.0 MG/DL Urine Leukocyte Esterase NEG Urine RBC 1 /hpf Urine WBC 1 /hpf Microscopic Urinalysis Comment CULT NOT INDICATED Nasal Screen MRSA (PCR) MRSA NOT DETECTED Test 04/06/17 03:28 White Blood Count 11.0 TH/MM3 Red Blood Count 3.89 MIL/MM3 Hemoglobin 11.8 GM/DL Hematocrit 35.1 % Mean Corpuscular Volume 90.4 FL Mean Corpuscular Hemoglobin 30.5 PG Mean Corpuscular Hemoglobin Concent 33.7 % Red Cell Distribution Width 16.7 % Platelet Count 208 TH/MM3 Mean Platelet Volume 7.5 FL Blood Urea Nitrogen 17 MG/DL Creatinine 0.76 MG/DL Random Glucose 131 MG/DL Calcium Level 7.5 MG/DL Magnesium Level 1.6 MG/DL Sodium Level 143 MEQ/L Potassium Level 4.1 MEQ/L Chloride Level 111 MEQ/L Carbon Dioxide Level 26.5 MEQ/L Anion Gap 6 MEQ/L Estimat Glomerular Filtration Rate 101 ML/MIN Lactic Acid Level 2.1 mmol/L Physical Examination HEENT: Normocephalic; atraumatic CHEST: Even/unlabored CARDIAC: RRR ABDOMEN: Soft, nontender; no hepatosplenomegaly; bowel sounds active x 4. EXTREMITIES: No clubbing, cyanosis, or edema. SKIN: Normal; no rash; no jaundice. COSMETIC SALES ADVISOR: No focal deficits; alert and oriented times three. Assessment and Plan Plan Assessment: Rectal bleeding- Started around 1700 yesterday afternoon- denies any episodes throughout the night. H/H on arrival to ED was 12.1/36.5 dropped to 9.8/30.6. Pt is now S/P 2 U PRBC , current H/H is 11.8/35.1. CT abdomen and pelvis W IV contrast (04/05) --> Colonic diverticular disease without evidence for diverticulitis. Mild mural thickening in the rectosigmoid of unknown etiology. Pt has known UC, diagnosed in June of this year, not well controlled with medication. Current medication regimen includes Canasa supp., Prednisone, and Asacol. Pt was supposed to start Remicade treatments yesterday, however, he ended up in the hospital. Reports abdominal cramping with BMs. Last PO intake was yesterday afternoon. Pt was evaluated by CRS who irrigated out the clots and plans to do flexsig this morning. Plan - Keep NPO - Continue Solumedrol - Continue Mesalamine rectal - Flexsigmoidoscopy to be done today by CRS - C Diff pending - Will await report from Dr. Matias flex sig - Plan for colonoscopy when appropriate - Monitor H/H - Transfuse as needed - Notify GI of active bleeding - Supportive care - Further recommendations to follow based on results of above Pt has been seen and examined by myself and Dr. Hathaway and this note is written on his behalf Yeimi Truong Apr 06, 2017 09:03
--- NOTE | 2017-04-06 10:31 | EKG ---
Date Performed: 04/06/2017 Time Performed: 10:00:51 PTAGE: 71 years EKG: Sinus rhythm NORMAL ECG NO PREVIOUS TRACING DOCTOR: Hany Willingham Interpretating Date/Time 04/06/2017 10:29:47
--- NOTE | 2017-04-06 11:27 | GIPROC ---
[facility] [address] [facility]. [facility] [place], [address] FLEXIBLE SIGMOIDOSCOPY PROCEDURE REPORT EXAM DATE: 04/06/2017 PATIENT NAME: Mike Bullock MR #: [id number] BIRTHDATE: 1945 ORDER #: [id number] ATTENDING: Lynn Matias MD CHRISTIAN COUNSELOR: Missy Pantoja and Paulo Garcia STATUS: inpatient INDICATIONS: The patient is a 71 yr old male here for a flexible sigmoidoscopy due to rectal bleeding, chronic ulcerative colitis PROCEDURE PERFORMED: Flexible sigmoidoscopy to descending colon MEDICATIONS: None and Per Anesthesia. ESTIMATED BLOOD LOSS: None CONSENT: The patient understands the risks and benefits of the procedure and understands that these risks include, but are not limited to: sedation, allergic reaction, infection, perforation and/or bleeding. Alternative means of evaluation and treatment include, among others: physical exam, x-rays, and/or surgical intervention. The patient elects to proceed with this endoscopic procedure. medical equipment was checked for proper function. Hand hygiene and appropriate measures for infection prevention was taken. After the risks, benefits and alternatives of the procedure were thoroughly explained, Informed consent was verified, confirmed and timeout was successfully executed by the treatment team. A digital rectal exam revealed palpable inflammation. The Pentax [id number] endoscope was introduced through the anus and advanced to the descending colon. The prep was good . The instrument was then slowly withdrawn as the colon was fully examined. The patient was noted to have severe inflammation from the distal rectum to the proximal sigmoid, with pseudopolyps. There was minimal active bleeding. The descending colon appeared normal but did have some clots. The scope was then completely withdrawn from the patient and the procedure terminated. ADVERSE EVENTS: There were no complications. IMPRESSIONS: Severe ulcerative proctocolitis RECOMMENDATIONS: If bleeding controlled, continue with plans for Remicaide Saturday RECALL: Per Gastroenterology Lynn Matias MD eSigned: Lynn Matias MD 04/06/2017 11:26 AM cc: Dr. Arredondo
[2017-04-06] MEDS ORDERED: DO NOT ADM ANY ANTICOAGULANT DRUGS PRN (12:00)
--- NOTE | 2017-04-06 12:37 | HHI.CCPN ---
Subjective Remarks/Hospital Course 71 y/o man with Hx of ulcerative colitis started passing large clots of blood per rectum about 1700 today. Came to ED, at one point following period of normotension he developed SBP 70 mm Hg. Rapid transfusion was begun and we brought him up to the [facility]. Dr. Matias examined the patient in ED and has made recommendations. 04/06: No active bleeding per patient. Received 2 units of PRBC. Hemoglobin 11.8 at 3 AM and repeat pending. Sigmoidoscopy showed severe ulcerative proctocolitis, but with only minimal active bleeding. Apparently planning on getting Remicade started Saturday Objective Vital Signs Date Time Temp Pulse Resp B/P (MAP) Pulse Ox O2 Delivery O2 Flow Rate FiO2 04/06/17 11:55 85 16 98 Room Air 04/06/17 11:50 98.2 112/62 (79) 04/06/17 11:40 2 04/06/17 07:58 21 Intake and Output 04/06/17 04/06/17 04/07/17 08:00 16:00 00:00 Intake Total 650 ml 300 ml Output Total 725 ml Balance -75 ml 300 ml Result Diagram: 04/06/17 0328 04/06/17 0328 Objective Remarks Gen: 71-year-old male in no acute distress Head: Normal. Lungs: Clear, no adventitious sounds. Heart: RRR, NL S1S2, No JVD. Abdomen: Soft, no guarding. BS active. Extremities: Tepid, adequately perfused. Neuro: Alert, O X 3. M/S grossly intact. A/P Assessment and Plan Assessment: 1. Lower GI bleed. 2. Hypotension. 3. Ulcerative colitis exacerbation Plan: 1. Serial Hgb. 2. NPO except meds, prep. Diet per GI 3. Maintenance IV. 4. IV steroid coverage (On prednisone) 5. Flexible sigmoidoscopy showed severe ulcerative proctocolitis 6. D/W Dr. Hathaway. august DC home tomorrow if stable and patient plan to start Remicade from Saturday Overall impression: Acute LGI hemorrhage with period of hypotension, now resolved and also bleeding resolved Level 2 Transfer to Med Surg with Tele. Hospitalist to assume care in Godfrey Mckeon MD Apr 06, 2017 12:37
[2017-04-06 16:50] LABS: HEMATOCRIT 34.5 % (39.0-51.0); MEAN CELL VOLUME 90.9 FL (80.0-100.0); MEAN CORPUSCULAR HGB CONC 34.1 % (32.0-36.0); PLATELET COUNT 210 TH/MM3 (150-450); RED CELL DISTRIBUTION WIDTH 17.4 % (11.6-17.2); REVIEW FLAG FINAL; WHITE BLOOD COUNT 12.1 TH/MM3 (4.0-11.0)
[2017-04-06] MEDS: MESALAMINE ENEMA 4 GM/60 ML BTL RECTAL SCH (21:00)
[2017-04-07 01:48] LABS: HEMATOCRIT 30.8 % (39.0-51.0); MEAN CELL VOLUME 89.9 FL (80.0-100.0); MEAN CORPUSCULAR HEMOGLOBIN 30.2 PG (27.0-34.0); MEAN CORPUSCULAR HGB CONC 33.6 % (32.0-36.0); PLATELET COUNT 181 TH/MM3 (150-450); RED BLOOD COUNT 3.42 MIL/MM3 (4.50-5.90); RED CELL DISTRIBUTION WIDTH 16.8 % (11.6-17.2); REVIEW FLAG FINAL; WHITE BLOOD COUNT 9.8 TH/MM3 (4.0-11.0)
[2017-04-07] MEDS: CHLORHEXIDINE GLUCONATE 2 % 1 PACK (2 CLOTHS) TOP SCH (04:00)
[2017-04-07 04:09] VITALS: BP 107/80; PULSE 85; RESP 17; TEMP 96.7; O2SAT 97
[2017-04-07] MEDS: methylPREDNISolone SOD SUCC 40 MG/1 ML VIAL IV PUSH SCH (06:41)
--- NOTE | 2017-04-07 07:34 | HHI.PR ---
Subjective Remarks Severe Ulcerative Proctocolitis with bleeding No significant bleeding overnight Objective Vital Signs Date Time Temp Pulse Resp B/P (MAP) Pulse Ox O2 Delivery O2 Flow Rate FiO2 04/07/17 05:20 21 04/07/17 04:09 96.7 85 17 107/80 (89) 97 04/06/17 23:36 97.6 75 18 140/77 (98) 96 04/06/17 19:42 97.8 71 17 138/80 (99) 96 04/06/17 16:00 97.9 90 18 134/85 (101) 96 04/06/17 12:00 98.6 84 18 136/80 (98) 96 04/06/17 11:55 85 16 98 Room Air 04/06/17 11:50 98.2 84 16 112/62 (79) 97 Room Air 04/06/17 11:40 83 15 106/57 (73) 100 Nasal Cannula 2 04/06/17 11:30 98.0 84 14 110/65 (80) 98 Nasal Cannula 2 04/06/17 10:00 63 16 146/89 (108) 98 04/06/17 09:30 98.2 68 18 153/88 (109) 96 04/06/17 09:00 Room Air 04/06/17 08:00 98.7 04/06/17 07:58 98 21 I/O 04/06/17 04/06/17 04/06/17 04/07/17 04/07/17 04/07/17 06:59 14:59 22:59 06:59 14:59 22:59 Intake Total 650 ml 300 ml 480 ml 783 ml Output Total 725 ml 400 ml Balance -75 ml -100 ml 480 ml 783 ml Intake Oral 480 ml 240 ml IV Total 543 ml Packed Cells 400 ml Blood Product IV Normal Saline Flush 250 ml Other 300 ml Output Urine Total 725 ml 400 ml # Voids 2 0 2 3 # Bowel Movements 1 0 0 Result Diagram: 04/07/17 0119 04/06/17 0328 Objective Remarks Abdomen benign Assessment and Plan Assessment and Plan No further significant bleeding Hgb slightly down, but probably equivocal OK for d/c today for outpatient Remicaide injection tomorrow Lynn Matias MD Apr 07, 2017 07:34
[2017-04-07 08:00] VITALS: BP 147/91; PULSE 57; RESP 18; TEMP 96.1; O2SAT 98
--- NOTE | 2017-04-07 09:09 | HHI.PR ---
Subjective Remarks Pt overall feeling better today He has had a soft BM this morning with small amount of bright red blood noted, much improved since admission. He denies any further abd cramping He is tolerating soft foods. Pt is very anxious to go home as he has his Remicade infusion scheduled for tomorrow morning at 0830 Objective Vitals Vital Signs Date Time Temp Pulse Resp B/P (MAP) Pulse Ox O2 Delivery O2 Flow Rate FiO2 04/07/17 05:20 21 04/07/17 04:09 96.7 85 17 107/80 (89) 97 04/06/17 23:36 97.6 75 18 140/77 (98) 96 04/06/17 19:42 97.8 71 17 138/80 (99) 96 04/06/17 16:00 97.9 90 18 134/85 (101) 96 04/06/17 12:00 98.6 84 18 136/80 (98) 96 04/06/17 11:55 85 16 98 Room Air 04/06/17 11:50 98.2 84 16 112/62 (79) 97 Room Air 04/06/17 11:40 83 15 106/57 (73) 100 Nasal Cannula 2 04/06/17 11:30 98.0 84 14 110/65 (80) 98 Nasal Cannula 2 04/06/17 10:00 63 16 146/89 (108) 98 04/06/17 09:30 98.2 68 18 153/88 (109) 96 04/06/17 09:00 Room Air Result Diagram: 04/07/17 0119 04/06/17 0328 Other Results Laboratory Tests Test 04/05/17 18:15 04/05/17 20:00 04/05/17 20:51 04/05/17 22:30 White Blood Count 9.2 TH/MM3 12.2 TH/MM3 Red Blood Count 3.89 MIL/MM3 3.24 MIL/MM3 Hemoglobin 12.1 GM/DL 9.8 GM/DL Hematocrit 36.5 % 30.6 % Mean Corpuscular Volume 93.7 FL 94.3 FL Mean Corpuscular Hemoglobin 31.1 PG 30.3 PG Mean Corpuscular Hemoglobin Concent 33.2 % 32.1 % Red Cell Distribution Width 16.8 % 16.4 % Platelet Count 279 TH/MM3 264 TH/MM3 Mean Platelet Volume 8.1 FL 7.3 FL Neutrophils (%) (Auto) 77.5 % Lymphocytes (%) (Auto) 16.4 % Monocytes (%) (Auto) 5.3 % Eosinophils (%) (Auto) 0.2 % Basophils (%) (Auto) 0.6 % Neutrophils # (Auto) 7.2 TH/MM3 Lymphocytes # (Auto) 1.5 TH/MM3 Monocytes # (Auto) 0.5 TH/MM3 Eosinophils # (Auto) 0.0 TH/MM3 Basophils # (Auto) 0.1 TH/MM3 CBC Comment AUTO DIFF Differential Total Cells Counted 100 Neutrophils % (Manual) 70 % Band Neutrophils % 4 % Lymphocytes % 15 % Monocytes % 7 % Neutrophils # (Manual) 7.2 TH/MM3 Metamyelocytes 2 % Myelocytes 1 % Promyelocytes 1 % Differential Comment FINAL DIFF MANUAL Toxic Granulation 1+ Platelet Estimate NORMAL Platelet Morphology Comment NORMAL Ovalocytes 1+ Prothrombin Time 10.2 SEC Prothromb Time International Ratio 1.0 RATIO Activated Partial Thromboplast Time 18.8 SEC Blood Urea Nitrogen 17 MG/DL Creatinine 0.83 MG/DL Random Glucose 100 MG/DL Total Protein 5.9 GM/DL Albumin 2.5 GM/DL Calcium Level 8.2 MG/DL Alkaline Phosphatase 73 U/L Aspartate Amino Transf (AST/SGOT) 26 U/L Alanine Aminotransferase (ALT/SGPT) 43 U/L Total Bilirubin 0.4 MG/DL Sodium Level 142 MEQ/L Potassium Level 4.2 MEQ/L Chloride Level 106 MEQ/L Carbon Dioxide Level 26.8 MEQ/L Anion Gap 9 MEQ/L Estimat Glomerular Filtration Rate 91 ML/MIN Lipase 69 U/L Urine Color LIGHT-YELLOW Urine Turbidity CLEAR Urine pH 7.0 Urine Specific [place] 1.008 Urine Protein NEG mg/dL Urine Glucose (UA) NEG mg/dL Urine Ketones NEG mg/dL Urine Occult Blood MOD Urine Nitrite NEG Urine Bilirubin NEG Urine Urobilinogen LESS THAN 2.0 MG/DL Urine Leukocyte Esterase NEG Urine RBC 1 /hpf Urine WBC 1 /hpf Microscopic Urinalysis Comment CULT NOT INDICATED Nasal Screen MRSA (PCR) MRSA NOT DETECTED Test 04/06/17 03:28 04/06/17 15:47 04/07/17 01:19 White Blood Count 11.0 TH/MM3 12.1 TH/MM3 9.8 TH/MM3 Red Blood Count 3.89 MIL/MM3 3.80 MIL/MM3 3.42 MIL/MM3 Hemoglobin 11.8 GM/DL 11.8 GM/DL 10.3 GM/DL Hematocrit 35.1 % 34.5 % 30.8 % Mean Corpuscular Volume 90.4 FL 90.9 FL 89.9 FL Mean Corpuscular Hemoglobin 30.5 PG 31.0 PG 30.2 PG Mean Corpuscular Hemoglobin Concent 33.7 % 34.1 % 33.6 % Red Cell Distribution Width 16.7 % 17.4 % 16.8 % Platelet Count 208 TH/MM3 210 TH/MM3 181 TH/MM3 Mean Platelet Volume 7.5 FL 7.9 FL 7.8 FL Blood Urea Nitrogen 17 MG/DL Creatinine 0.76 MG/DL Random Glucose 131 MG/DL Calcium Level 7.5 MG/DL Magnesium Level 1.6 MG/DL Sodium Level 143 MEQ/L Potassium Level 4.1 MEQ/L Chloride Level 111 MEQ/L Carbon Dioxide Level 26.5 MEQ/L Anion Gap 6 MEQ/L Estimat Glomerular Filtration Rate 101 ML/MIN Lactic Acid Level 2.1 mmol/L Imaging Last Impressions Abdomen/Pelvis CT 04/05/171808 Signed Impressions: Service Date/Time: Wednesday, April 05, 2017 19:20 - CONCLUSION: 1. Colonic diverticular disease without evidence for diverticulitis. Mild mural thickening in the rectosigmoid of unknown etiology. 2. 7 cm left renal cyst. 3. Small hiatal hernia. Anthony Ribeiro MD Objective Remarks General: NAD, AAox3 Chest: CTA Cardiac: Regular Abd: +BS, soft ND/NT Ext: No edema A/P Problem List: (1) Hypovolemic shock ICD Codes: R57.1 - Hypovolemic shock Status: Acute Plan: Pt is a 71 y/o male with Ulcerative colitis diagnosed earlier this year. Pt had a colonoscopy in 06/2016 to evaluate persistent rectal bleeding despite IRC treatment for hemorrhoids. At that time pt was diagnosed with ulcerative colitis, confirmed by biopsy, he has tried multiple medications and has been refractory to treatment. Current treatment regimen includes Prednisone, Asacol, and Canasa suppository. Pt was supposed to receive his first injection of Remicade on 04/08 but he presented to the ED with complaints of passing blood clots in his stool with associated abdominal cramping with BMs. GI Bleed Ulcerative colitis Hypovolemic shock - Pt started passing large clots of blood per rectum at about 1700 on 04/05. He presented to the ED but became hypotensive in the ED with SBP 70 mm Hg. - His H?H decreased from 12.1/36.5 to 9.8/30.6 while in the ED on 04/05 - Rapid transfusion was begun and he was admitted to [facility]. Pt received 2 units of PRBC. - CT abdomen/pelvis W IV contrast (04/05) --> Colonic diverticular disease without evidence for diverticulitis. Mild mural thickening in the rectosigmoid of unknown etiology. - CRS, Dr. Matias, was consulted. - Sigmoidoscopy (04/05) showed severe ulcerative proctocolitis, but with only minimal active bleeding. - GI following as well. - Pt apparently planning on getting Remicade started Saturday, 04/08 @ 0830AM - Pts H/H has been relatively stable since the transfusion, slight decrease in Hgb today from 11.8 to 10.3, may be partially dilutional as he has been on IVF @ 40ml/hr - He denies any further active bleeding. He had a soft BM with some slight bright red blood. - Pt has been receiving Rowasa enema 4mg HS, Solu-Medrol 40mg IV Q8H - At home he has been on 6-MP, Asacol 800mg BID, Prednisone 40mg po daily, Hydrocortisone enemas and Canasa supp - Pt has been cleared for discharge from CRS standpoint to followup for Remicade infusion tomorrow and he has followup appt scheduled with GI on 04/17 - Discussed with the pt that he should continue a soft, low residue diet - Should he have any further bleeding, generalized weakness, chest pain, SOB , palpitations, etc, that he is to come back to the ED for further evaluation. He and his expressed understanding. HTN - Cont. home meds Hyperlipidemia - Cont. home meds (2) Lower GI bleed ICD Codes: K92.2 - Gastrointestinal hemorrhage, unspecified Status: Acute Plan: - See above (3) Ulcerative colitis ICD Codes: K51.90 - Ulcerative colitis, unspecified, without complications Status: Chronic Plan: - See above (4) HTN (hypertension) ICD Codes: I10 - Essential (primary) hypertension Plan: - See above (5) Hyperlipidemia ICD Codes: E78.5 - Hyperlipidemia, unspecified Plan: - See above. Assessment and Plan Patient examined. Assessment and plan formulated with Mai Bush PA-C. I agree with the above. ulcerative colitis. presented with acute lower gib. stable h/h. going for remicade tomorrow. dc today Mai Bush Apr 07, 2017 09:09 Javon Rendon MD Apr 07, 2017 10:58
[2017-04-07] MEDS: FAMOTIDINE 20 MG/2 ML VIAL IV PUSH SCH (09:27)
[2017-04-07] MEDS: SODIUM CHLORIDE 0.9% FLUSH 10 ML FLUSH IV FLUSH SCH (09:31)
--- NOTE | 2017-04-07 09:38 | HHI.DCPOC ---
Discharge Care Plan Diagnosis: (1) Lower GI bleed (2) Ulcerative colitis (3) HTN (hypertension) (4) Hyperlipidemia (5) Hypovolemic shock Goals to Promote Your Health - At home he has been on 6-MP, Asacol 800mg twice daily, Prednisone 20mg twice daily, Hydrocortisone enemas and Canasa supp and this regimen will be continued - Pt has been cleared for discharge from CRS standpoint to followup for Remicade infusion tomorrow and he has followup appt scheduled with GI on 04/17 - Discussed with the pt that he should continue a soft, low residue diet - Should he have any further bleeding, generalized weakness, chest pain, shortness of breath, palpitations, etc, that he is to come back to the ED for further evaluation. Directions to Meet Your Goals Take your medications as prescribed Follow your dietary instruction Follow activity as directed Keep your appointments as scheduled Take your immunizations and boosters as scheduled If your symptoms worsen call your PCP, if no PCP go to Urgent Care Center or Emergency Room Smoking is Dangerous to Your Health. Avoid second hand smoke Call the 24-hour hour crisis hotline for domestic abuse at Mai Bush Apr 07, 2017 09:38
[2017-04-07] MEDS ORDERED: PNEUMOCOCCAL POLYVALENT INJ 25 MCG/0.5 ML SYR IM ONE (10:00)
[2017-04-07 10:18] LABS: HEMATOCRIT 32.2 % (39.0-51.0); MEAN CELL VOLUME 89.9 FL (80.0-100.0); MEAN CORPUSCULAR HEMOGLOBIN 30.9 PG (27.0-34.0); MEAN CORPUSCULAR HGB CONC 34.3 % (32.0-36.0); PLATELET COUNT 204 TH/MM3 (150-450); RED BLOOD COUNT 3.58 MIL/MM3 (4.50-5.90); RED CELL DISTRIBUTION WIDTH 16.4 % (11.6-17.2); REVIEW FLAG FINAL; WHITE BLOOD COUNT 10.7 TH/MM3 (4.0-11.0)
[2017-04-07 10:54] VITALS: O2SAT 96
== END 2017-04-07 11:48 | disposition home or self-care (01) | DRG 385 ==
LOC: NEPE 17:10 → NEDA 20:54 → N03B 21:46 → N06B 04-06 15:16
PROVIDERS: ADMIT Surgery Surgical Critical Care; ATTEND Surgery Surgical Critical Care
PROC: 30233N1 Transfusion of Nonautologous Red Blood Cells into Peripheral Vein, Percutaneous Approach (ICD-10-PCS; principal; 2017-04-05)
PROC: 0DJD8ZZ Inspection of Lower Intestinal Tract, Via Natural or Artificial Opening Endoscopic (ICD-10-PCS; 2017-04-06)
DX: K51.911 Ulcerative colitis, unspecified with rectal bleeding (principal); R57.1 Hypovolemic shock; R71.0 Precipitous drop in hematocrit; N28.1 Cyst of kidney, acquired; K44.9 Diaphragmatic hernia without obstruction or gangrene; I34.1 Nonrheumatic mitral (valve) prolapse; E78.5 Hyperlipidemia, unspecified; I10 Essential (primary) hypertension; K64.9 Unspecified hemorrhoids; Z92.3 Personal history of irradiation; Z85.46 Personal history of malignant neoplasm of prostate; Z87.891 Personal history of nicotine dependence; Z88.0 Allergy status to penicillin; Z88.1 Allergy status to other antibiotic agents; Z23 Encounter for immunization
CPT/HCPCS: 36430; 74177; 80048; 80053; 81001; 83605; 83690; 83735; 85007; 85027; 85610; 85730; 86850; 86900; 86901; 86920; 87641; 90471; 90732; 93005; 96360; G0009; J2920; J3480; J7030; J7050; P9016; Q9967

== ENCOUNTER 2017-04-23 13:39 | Emergency (ER) | payer MEDICARE ==
[~2017-04-23] VITALS: Ht 177.8 cm; Wt 79.5 kg
[~2017-04-23 13:39] MED LIST: ALIG4CAP PO; ASAC800T PO; CANA10002 RECTAL; CHOL1TAB42; CITA20TA4 PO; DIAZ10TA PO; FOLI1TAB6 PO; HYDR100E2 RECTAL; MERC50TA PO; PRED20 PO; PRIL20TA2 PO; SIMV40TA PO; TIMO0.5S30 EACH EYE; VERA1TAB17 PO
[2017-04-23 13:40] VITALS: BP 163/77; PULSE 84; RESP 14; TEMP 98.7; O2SAT 97
[2017-04-23] MEDS ORDERED: VITA2000 PO (14:12)
[2017-04-23] MEDS ORDERED: INFL100P IV (14:12)
--- NOTE | 2017-04-23 14:20 | PD ---
HPI Chief Complaint: GI Complaint Time Seen by Provider: 14:02 Travel History International Travel<30 days: No Contact w/Intl Traveler<30days: No Traveled to known affect area: No History of Present Illness HPI 71-year-old male with a history of ulcerative colitis and bleeding hemorrhoids presents to the emergency department complaining of 2 bowel movements with bright red blood. Patient states that he follows his gastrointestinal doctor regularly for these issues. States that he was here April 05 with a rectal bleed which required 2 units PRBCs and admission for 3 days. Patient states his doctor recently changed his medications and is currently on Remicade which requires effusions approximated every 8 weeks. Patient is also been on cholestyramine for about type days which has hard in his stools. Denies abdominal pain. Patient denies nausea, vomiting or diarrhea. Denies fever or chills. Denies chest pain, shortness of breath, dizziness. He describes his bowel movements initially with a couple of clots then had a hard stool with mucus then had a bowel movement with copious blood in the toilet. Patient states that this was about an hour ago and currently does not have any bleeding from his rectum. States he is here today because his gastrointestinal doctor told him to immediately go to the emergency department if he began bleeding again. PFSH Past Medical History Cancer: Yes (prostate) Cardiovascular Problems: No High Cholesterol: Yes Endocrine: No Gastrointestinal Disorders: Yes (ULCERATIVE COLITIS) Genitourinary: No Immune Disorder: No Musculoskeletal: No Neurologic: No Psychiatric: No Reproductive: No Respiratory: No Radiation Therapy: Yes (external) Past Surgical History Abdominal Surgery: No Cardiac Surgery: No Ear Surgery: No Endocrine Surgery: No Eye Surgery: No Genitourinary Surgery: No Gynecologic Surgery: No Oral Surgery: No Thoracic Surgery: No Other Surgery: Yes (INFRARED COAGULATION) Social History Alcohol Use: No Tobacco Use: No Substance Use: No Allergies-Medications (Allergen,Severity, Reaction): Coded Allergies: Penicillins (Verified Allergy, Unknown, 04/23/17) ciprofloxacin (Verified Allergy, Unknown, 04/23/17) Reported Meds & Prescriptions Reported Meds & Active Scripts Active Reported Remicade Inj (Infliximab) 100 Mg Inj 400 Mg IV EVERY 8 WEEKS Vitamin D3 (Cholecalciferol) 2,000 Unit Cap 2,000 Units PO DAILY Align (Lactobacillus Rhamnosus (GG)) 4 Mg (1 Billion Cell) Cap 4 Mg PO DAILY Prednisone 20 Mg Tab 20 Mg PO DAILY Folic Acid 1 Mg Tablet 1 Tab PO DAILY Timolol Opth Drops 0.5 % Soln 1 Drop EACH EYE BID Prilosec (Omeprazole Magnesium) 20 Mg Tab 1 Tab PO DAILY Citalopram (Citalopram Hydrobromide) 20 Mg Tab 20 Mg PO DAILY Simvastatin 40 Mg Tab 40 Mg PO HS Verapamil ER 24 HR (Verapamil HCl) 240 Mg Tab 240 Mg PO HS Diazepam 10 Mg Tab 10 Mg PO BID PRN Review of Systems Except as stated in HPI: all other systems reviewed are Neg Physical Exam Narrative GENERAL: Well-nourished in no apparent distress SKIN: Focused skin assessment warm/dry. Slightly pale mucous membranes HEAD: Atraumatic. Normocephalic. EYES: Pupils equal and round. No scleral icterus. No injection or drainage. ENT: No nasal bleeding or discharge. Mucous membranes pink and moist. NECK: Trachea midline. No JVD. No lymphadenopathy CARDIOVASCULAR: Regular rate and rhythm. No murmur appreciated. RESPIRATORY: No accessory muscle use. Clear to auscultation. Breath sounds equal bilaterally. GASTROINTESTINAL: Abdomen soft, non-tender, nondistended. Hepatic and splenic margins not palpable. Rectal exam- BRB mixed with stool. no melena. good rectal tone. MUSCULOSKELETAL: No obvious deformities. No clubbing. No cyanosis. No edema. NEUROLOGICAL: Awake and alert. No obvious cranial nerve deficits. Motor grossly within normal limits. Normal speech. PSYCHIATRIC: Appropriate mood and affect; insight and judgment normal. Data Data Last Documented VS Vital Signs Date Time Temp Pulse Resp B/P (MAP) Pulse Ox O2 Delivery O2 Flow Rate FiO2 04/23/17 17:56 55 16 166/83 (110) 98 04/23/17 13:40 98.7 Orders Orders Complete Blood Count With Diff (04/23/17 14:16) Comprehensive Metabolic Panel (04/23/17 14:16) Sodium Chlorid 0.9% 500 Ml Inj (Ns 500 M (04/23/17 14:30) Ed Discharge Order (04/23/17 16:39) Labs Laboratory Tests Test 04/23/17 14:40 White Blood Count 6.0 TH/MM3 Red Blood Count 3.79 MIL/MM3 Hemoglobin 11.7 GM/DL Hematocrit 34.8 % Mean Corpuscular Volume 92.0 FL Mean Corpuscular Hemoglobin 30.9 PG Mean Corpuscular Hemoglobin Concent 33.6 % Red Cell Distribution Width 17.2 % Platelet Count 288 TH/MM3 Mean Platelet Volume 7.3 FL Neutrophils (%) (Auto) 68.0 % Lymphocytes (%) (Auto) 21.4 % Monocytes (%) (Auto) 10.2 % Eosinophils (%) (Auto) 0.3 % Basophils (%) (Auto) 0.1 % Neutrophils # (Auto) 4.1 TH/MM3 Lymphocytes # (Auto) 1.3 TH/MM3 Monocytes # (Auto) 0.6 TH/MM3 Eosinophils # (Auto) 0.0 TH/MM3 Basophils # (Auto) 0.0 TH/MM3 CBC Comment AUTO DIFF Differential Total Cells Counted 100 Neutrophils % (Manual) 56 % Band Neutrophils % 12 % Lymphocytes % 21 % Monocytes % 7 % Other Cells % 2 % Neutrophils # (Manual) 4.2 TH/MM3 Metamyelocytes 1 % Promyelocytes 1 % Nucleated Red Blood Cells 1 /100 WBC Differential Comment FINAL DIFF MANUAL Platelet Estimate NORMAL Platelet Morphology Comment NORMAL Ovalocytes 1+ Blood Urea Nitrogen 21 MG/DL Creatinine 0.91 MG/DL Random Glucose 99 MG/DL Total Protein 6.7 GM/DL Albumin 3.0 GM/DL Calcium Level 9.0 MG/DL Alkaline Phosphatase 79 U/L Aspartate Amino Transf (AST/SGOT) 16 U/L Alanine Aminotransferase (ALT/SGPT) 28 U/L Total Bilirubin 0.2 MG/DL Sodium Level 142 MEQ/L Potassium Level 4.7 MEQ/L Chloride Level 107 MEQ/L Carbon Dioxide Level 28.3 MEQ/L Anion Gap 7 MEQ/L Estimat Glomerular Filtration Rate 82 ML/MIN [facility] Medical Decision Making Medical Screen Exam Complete: Yes Emergency Medical Condition: Yes Differential Diagnosis Rectal bleed, hemorrhoids, ulcerative colitis, Crohn's disease Narrative Course 71-year-old male with a history of ulcerative colitis and bleeding hemorrhoids presents to the emergency department complaining of 2 bowel movements with bright red blood. Patient states that he follows his gastrointestinal doctor regularly for these issues. States that he was here April 05 with a rectal bleed which required 2 units PRBCs and admission for 3 days. Patient states his doctor recently changed his medications and is currently on Remicade which requires effusions approximated every 8 weeks. Patient is also been on cholestyramine for about type days which has hard in his stools. Denies abdominal pain. Patient denies nausea, vomiting or diarrhea. Denies fever or chills. Denies chest pain, shortness of breath, dizziness. He describes his bowel movements initially with a couple of clots then had a hard stool with mucus then had a bowel movement with copious blood in the toilet. Patient states that this was about an hour ago and currently does not have any bleeding from his rectum. States he is here today because his gastrointestinal doctor told him to immediately go to the emergency department if he began bleeding again. Vital signs stable. Physical exam findings- rectal exam demonstrates brown stool with bright red blood Attempts are made to consult his low voltage electrician who has seen him for the same issue. There is no apparent low voltage electrician conference planning manager today. Please see Dr. Velazquez's note as well regarding this patient. We were able to notify the office of his presence in the ER today. Because patient does not want to stay center for observation, we will discharge him with strict instructions to return. Patient remained stable during the visit. He will be discharged home with . [facility] Point of Care Internal Pos. & Neg. Controls: Passed Fecal Specimen Occult Blood: Positive Diagnosis Primary Impression: Rectal bleeding Referrals: Water Sander Additional Instructions: Follow-up with a low voltage electrician within 1 week. Follow up with your primary care physician within 2-3 days. If your symptoms persist or worsen, return to the emergency department. If he starts feeling dizzy, lightheaded return to the emergency department. Disposition: 01 DISCHARGE HOME Condition: Stable Valarie Barcenas Apr 23, 2017 14:20
[2017-04-23] MEDS ORDERED: SODIUM CHLORID 0.9% 500 ML INJ 500 ML IV ONE (14:30)
[2017-04-23 15:14] LABS: AUTOMATED NEUTROPHIL # 4.1 TH/MM3 (1.8-7.7); BASOPHIL % 0.1 % (0.0-2.0); EOSINOPHIL % 0.3 % (0.0-4.0); HEMATOCRIT 34.8 % (39.0-51.0); HEMOGLOBIN 11.7 GM/DL (13.0-17.0); LYMPH % 21.4 % (9.0-44.0); LYMPHOCYTE # 1.3 TH/MM3 (1.0-4.8); MEAN CORPUSCULAR HEMOGLOBIN 30.9 PG (27.0-34.0); MEAN CORPUSCULAR HGB CONC 33.6 % (32.0-36.0); MEAN PLATELET VOLUME 7.3 FL (7.0-11.0); MONO % 10.2 % (0.0-8.0); MONOCYTE # 0.6 TH/MM3 (0-0.9); PLATELET COUNT 288 TH/MM3 (150-450); RED BLOOD COUNT 3.79 MIL/MM3 (4.50-5.90); RED CELL DISTRIBUTION WIDTH 17.2 % (11.6-17.2)
[2017-04-23 15:34] LABS: ALKALINE PHOSPHATASE 79 U/L (45-117); ALT (GPT) 28 U/L (12-78); TOTAL BILIRUBIN ADULT 0.2 MG/DL (0.2-1.0); TOTAL PROTEIN 6.7 GM/DL (6.4-8.2)
[2017-04-23 15:36] LABS: AST (GOT) 16 U/L (15-37); BICARBONATE 28.3 MEQ/L (21.0-32.0); BLOOD UREA NITROGEN 21 MG/DL (7-18); CHLORIDE 107 MEQ/L (98-107); CREATININE 0.91 MG/DL (0.60-1.30); GLOMERULAR FILTRATION RATE 82 ML/MIN (>89); GLUCOSE,RANDOM 99 MG/DL (74-106); SODIUM (NA) 142 MEQ/L (136-145)
--- NOTE | 2017-04-23 15:50 | PD ---
Physical Exam Narrative I, Dr. Velazquez, have reviewed the advance practice practitioner's documentation and am in agreement, met with the patient face to face, made the diagnosis, and the medical decision making was done by me. *My assessment and Findings: Lower GI bleed 71yo M with ulcerative colitis here with c/o 2 episodes of blood in bowel movement today. Said first one was minimal and then at 2pm, he had a slightly larger amount. Denies any dizziness, chest pain, sob, n/v, abdominal pain, focal weakness or numbness. Labs reviewed, no leukocytosis. H/H 11.7/34.8 which is better than when he was discharged on 04/07/17. BUN mildly elevated. Vital signs stable. Pt was admitted 04/05/17 for GI bleed and had sigmoidoscopy 04/05 that showed ulcerative protocolitis with minimal active bleeding. Pt follows with Dr. Arredondo and Dr. Quarles. Pt does not want to stay for observation. Pt has been observed in the ED for over 2.5 hours and have not had another blood bowel movement. Pt is on his prednisone taper and still has meds. No abdominal pain on exam. I discussed with Dr. Arredondo's VALUE STREAM MANAGER and pt will follow up with them. Strict return precautions given. Data Data Last Documented VS Vital Signs Date Time Temp Pulse Resp B/P (MAP) Pulse Ox O2 Delivery O2 Flow Rate FiO2 04/23/17 13:40 98.7 84 14 163/77 (105) 97 Orders Orders Complete Blood Count With Diff (04/23/17 14:16) Comprehensive Metabolic Panel (04/23/17 14:16) Sodium Chlorid 0.9% 500 Ml Inj (Ns 500 M (04/23/17 14:30) Labs Laboratory Tests Test 04/23/17 14:40 White Blood Count 6.0 TH/MM3 Red Blood Count 3.79 MIL/MM3 Hemoglobin 11.7 GM/DL Hematocrit 34.8 % Mean Corpuscular Volume 92.0 FL Mean Corpuscular Hemoglobin 30.9 PG Mean Corpuscular Hemoglobin Concent 33.6 % Red Cell Distribution Width 17.2 % Platelet Count 288 TH/MM3 Mean Platelet Volume 7.3 FL Neutrophils (%) (Auto) 68.0 % Lymphocytes (%) (Auto) 21.4 % Monocytes (%) (Auto) 10.2 % Eosinophils (%) (Auto) 0.3 % Basophils (%) (Auto) 0.1 % Neutrophils # (Auto) 4.1 TH/MM3 Lymphocytes # (Auto) 1.3 TH/MM3 Monocytes # (Auto) 0.6 TH/MM3 Eosinophils # (Auto) 0.0 TH/MM3 Basophils # (Auto) 0.0 TH/MM3 CBC Comment AUTO DIFF Differential Total Cells Counted 100 Neutrophils % (Manual) 56 % Band Neutrophils % 12 % Lymphocytes % 21 % Monocytes % 7 % Other Cells % 2 % Neutrophils # (Manual) 4.2 TH/MM3 Metamyelocytes 1 % Promyelocytes 1 % Nucleated Red Blood Cells 1 /100 WBC Differential Comment FINAL DIFF MANUAL Platelet Estimate NORMAL Platelet Morphology Comment NORMAL Ovalocytes 1+ Blood Urea Nitrogen 21 MG/DL Creatinine 0.91 MG/DL Random Glucose 99 MG/DL Total Protein 6.7 GM/DL Albumin 3.0 GM/DL Calcium Level 9.0 MG/DL Alkaline Phosphatase 79 U/L Aspartate Amino Transf (AST/SGOT) 16 U/L Alanine Aminotransferase (ALT/SGPT) 28 U/L Total Bilirubin 0.2 MG/DL Sodium Level 142 MEQ/L Potassium Level 4.7 MEQ/L Chloride Level 107 MEQ/L Carbon Dioxide Level 28.3 MEQ/L Anion Gap 7 MEQ/L Estimat Glomerular Filtration Rate 82 ML/MIN MDM Supervised Visit with HERMAN: Yes Diagnosis Primary Impression: Lower GI bleed Referrals: Icebox Worker Condition: Stable Kimberly Velazquez DO Apr 23, 2017 15:50
[2017-04-23 16:05] LABS: NUCLEATED RED BLOOD CELL 1 (0-0); POLYS (SEG NEUTROPHILS) 56 % (16-70)
[2017-04-23 16:07] LABS: BANDS 12 % (0-6); CORRECTED NUCLEATED RBC 1 /100 WBC (0-0); LYMPHOCYTES 21 % (9-44); METAMYELOCYTES 1 % (0-1); MONOCYTES 7 % (0-8); PROMYELOCYTES 1 % (0-0)
[2017-04-23 16:35] LABS: OVALOCYTES 1+ (NORMAL)
[2017-04-23 17:56] VITALS: BP 166/83
[2017-04-24 09:32] LABS: MYELOCYTES 2 % (0-0); NEUTROPHIL # MANUAL DIFF 4.3 TH/MM3 (1.8-7.7)
== END 2017-04-23 17:56 | disposition home or self-care (01) ==
LOC: NEPC 13:39
DX: K51.911 Ulcerative colitis, unspecified with rectal bleeding (principal); E78.00 Pure hypercholesterolemia, unspecified
CPT/HCPCS: 80053; 85007; 85027; 96360; 99284; J7040